=== PATIENT | female | born 1955 | race Caucasian/White ===

== ENCOUNTER 2020-03-27 07:37 | Day surgery (SDC) | payer BC ==
[~2020-03-27] VITALS: Ht 157.5 cm; Wt 59.4 kg
[2020-03-27] VITALS (11 sets, daily range): BP systolic 134–154; BP diastolic 76–110
[~2020-03-27 07:37] MED LIST: ASPI1TAB2 PO; PANT40TA4 PO; albuterol 2.5 MG/3 ML nebule NEB ONE; ceFAZolin 2gm in dextrose, iso 50 ML IV ONE; famotidine 20mg tablet PO ONE; ringers solution, lacted 1,000 ML IV SCH
[2020-03-27] MEDS ORDERED: LIDOcaine 1% 30ml preserv. free vial ONE (11:01)
[2020-03-27] MEDS ORDERED: BUPIVAcaine/PF 2.5 mg/ml (0.25%) 30ml vial ONE (11:02)
[2020-03-27] MEDS ORDERED: sevoflurane 250ml liquid IH ONE (11:13)
[2020-03-27] MEDS ORDERED: fentaNYL/PF 50MCG/1 ML 2ML syringe ONE (11:20)
[2020-03-27] MEDS ORDERED: midazolam 2 mg/2 ml injection ONE (11:20)
[2020-03-27] MEDS ORDERED: glycopyrrolate 0.2mg/ml inj ONE (11:49)
[2020-03-27] MEDS ORDERED: propofol inj 20 ML IV ONE (11:49)
[2020-03-27] MEDS ORDERED: rocuronium 10mg/ml inj IV ONE (11:49)
[2020-03-27] MEDS ORDERED: neostigmine methylsulfate 1 MG/ML 10ml vial ONE (11:49)
[2020-03-27] MEDS ORDERED: ondansetron/PF 4mg/2ml inj ONE (11:49)
[2020-03-27] MEDS ORDERED: LIDOcaine 2% (20mg/ml) 5ml vial ONE (11:49)
[2020-03-27] MEDS ORDERED: dexamethasone sod phosphate 4mg/ml inj. ONE (11:49)
[2020-03-27] MEDS ORDERED: ringers solution, lacted 1,000 ML IV SCH (11:58)
[2020-03-27] MEDS ORDERED: ondansetron/PF 4mg/2ml inj IV PRN (12:00)
[2020-03-27] MEDS ORDERED: morphine 4 MG/ML inj SYRINge IV PRN (12:00)
[2020-03-27] MEDS ORDERED: morphine 2 MG/ML inj. syringe IV PRN (12:00)
[2020-03-27] MEDS ORDERED: meperidine/PF 25mg/ml syringe IV PRN ×3 (12:00)
[2020-03-27] MEDS ORDERED: proCHLORperazine 10 MG/2 ml inj IV PRN (12:00)
[2020-03-27] MEDS ORDERED: ePHEDrine 50MG/ML INJ. ONE (12:05)
--- NOTE | 2020-03-27 12:18 | NUR ---
Received from OR via [facility], accompanied by Anesthesiologist DR REEVES and report given by Anesthesiologist. PT DROWSY, DENIES PAIN, ABDOMEN W/SMALL MICAELA TELLES COVERING INCISION CDI. Addendum: 03/27/20 at 1242 by Tomeka Wilkerson RN Amended: Links added.
[2020-03-27] MEDS ORDERED: oxyCODONE/APAP 5-325mg tablet PO PRN (12:45)
--- NOTE | 2020-03-27 14:18 | NUR ---
PT UP AND IS ABLE TO AMBULATE W/O DIFFICULTY, PT VOIDED, PAIN LEVEL IS GOOD, D/C INSTRUCTIONS GIVEN AND GONE OVER W/PT WHO VERBALIZED UNDERSTANDING, PT D/CD TO HOME VIA W/C TO PRIVATE VEHICLE W/O INCIDENT. Addendum: 03/27/20 at 1440 by Tomeka Wilkerson RN Amended: Links added.
== END 2020-03-27 14:18 | disposition home or self-care (01) ==
LOC: PAS 07:37
PROVIDERS: ATTEND Surgery
DX: K43.2 Incisional hernia without obstruction or gangrene (principal); K21.9 Gastro-esophageal reflux disease without esophagitis; E78.5 Hyperlipidemia, unspecified; F17.210 Nicotine dependence, cigarettes, uncomplicated; Z90.49 Acquired absence of other specified parts of digestive tract; Z88.8 Allergy status to other drugs, medicaments and biological substances; Z98.890 Other specified postprocedural states; Z90.710 Acquired absence of both cervix and uterus; Z98.42 Cataract extraction status, left eye; Z98.41 Cataract extraction status, right eye; Z11.59 Encounter for screening for other viral diseases; Z79.899 Other long term (current) drug therapy
CPT/HCPCS: 36415; 49560; 76937; 93005; J1100; J2001; J2250; J2405; J2704; J2710; J3010; J3490; J7120; U0003; A4215; A4618; A7000

== ENCOUNTER 2023-05-19 10:07 | Day surgery (SDC) | payer BC ==
[2023-05-17 15:34] LABS: BASOPHILS % (AUTO) 0.3 % (0-1); EOSINOPHILS # (AUTO) 0.1 X10'3 (0-0.9); EOSINOPHILS % (AUTO) 0.9 % (0-6); LYMPHOCYTES # (AUTO) 1.7 X10'3 (1.1-4.8); LYMPHOCYTES % (AUTO) 29.8 % (21-51); MEAN CORPUSCULAR HEMOGLOBIN 28.8 PG (27.0-31.0); MEAN CORPUSCULAR HGB CONC 32.7 g/dL (33.0-36.5); MEAN PLATELET VOLUME 7.8 FL (7.4-10.4); MONOCYTES # (AUTO) 0.4 X10'3 (0-0.9); NEUTROPHILS # (AUTO) 3.6 X10'3 (1.8-7.7); PRE OP HEMATOCRIT 43.4 % (35.0-45.0); PRE OP HEMOGLOBIN 14.2 g/dL (12.0-16.0); PRE OP PLATELET COUNT 240 X10'3 (140-440); PRE OP WHITE BLOOD COUNT 5.7 10'3 (4.8-10.8); RED BLOOD COUNT 4.93 X10'6 (4.20-5.60); RED CELL DISTRIBUTION WIDTH 13.6 % (11.5-14.5)
[2023-05-17 15:50] LABS: ALKALINE PHOSPHATASE 100 IU/L (46-116); BLOOD UREA NITROGEN 16 MG/DL (7-18); CALCIUM 9.3 MG/DL (8.5-10.1); CHLORIDE 104 MMOL/L (99-107); CREATININE 0.84 MG/DL (0.40-0.90); PRE OP ALT 36 U/L (30-65); PRE OP ANION GAP 8 (8-16); PRE OP AST 29 U/L (10-37); PRE OP BILIRUB, TOTAL 0.2 MG/DL (0.0-1.0); PRE OP GLUCOSE 99 MG/DL (70-104); PRE OP POTASSIUM 4.2 MMOL/L (3.4-5.1); PRE OP SODIUM 138 MMOL/L (135-145); TOTAL CARBON DIOXIDE 26.5 MMOL/L (24-32); TOTAL PROTEIN 7.9 G/DL (6.4-8.2); eGFR 67 ML/MIN
[~2023-05-19] VITALS: Ht 157.5 cm; Wt 60.3 kg
[~2023-05-19 10:07] MED LIST changes: -ASPI1TAB2 PO; +CETI10CA PO; +CYCL5TAB PO; +FAMO40TA7 PO; +MULT-1085 PO; -PANT40TA4 PO; +PRAV40TA3 PO; +TRAM50TA2 PO; -albuterol 2.5 MG/3 ML nebule NEB ONE; -ceFAZolin 2gm in dextrose, iso 50 ML IV ONE; +cefazolin 2gm/D5W 100mL 100 ML IV ONE; +clindamycin-Cleocin 900mg/D5W 50 ML IV ONE; +gentamicin inj 250 MG in normal saline 100ml IV soln 93.75 ML IV ONE
[2023-05-19 10:30] VITALS: BP 161/80; PULSE 90; RESP 16; TEMP 98.2; O2SAT 98
[2023-05-19 11:39] LABS: BILIRUBIN,URINE NEGATIVE (Neg); CLARITY,URINE SLIGHTLY CLOUDY (Clear); COLOR,URINE STRAW (Yellow); GLUCOSE, URINE NEGATIVE (Neg); KETONES,URINE NEGATIVE (Neg); LEUKOCYTE ESTERASE ,URINE NEGATIVE (Neg); NITRITES, URINE NEGATIVE (Neg); OCCULT BLOOD,URINE NEGATIVE (Neg); PH,URINE 6.5 (4.8-8.0); PROTEIN,URINE NEGATIVE (Neg); UROBILINOGEN,URINE 0.2 E.U/dL (0.2-1.0)
[2023-05-19 11:55] LABS: UA COLLECTION TYPE CLN CATCH MIDSTREAM
[2023-05-19 11:58] LABS: BACTERIA,URINE FEW /HPF (Neg); RBC,URINE 0-2 /HPF (0-2); SQUAMOUS EPITHELIAL CELL,UR FEW /LPF (FEW); WBC,URINE 0-4 /HPF (0-4)
[2023-05-19] MEDS ORDERED: BUPIVAcaine/PF 2.5 mg/ml (0.25%) 30ml vial ONE (11:59)
[2023-05-19] MEDS ORDERED: bacitracin 15gm ointment TP ONE ×2 (11:59→12:00)
[2023-05-19] MEDS ORDERED: sevoflurane 250ml liquid IH ONE (12:05)
[2023-05-19] MEDS ORDERED: fentaNYL/PF 50MCG/1 ML 2ML syringe ONE (12:09)
[2023-05-19] MEDS ORDERED: MIDAZolam 1 MG/ML 5ML VIAL ONE (12:10)
[2023-05-19] MEDS ORDERED: BUPIVAcaine/PF 7.5mg/ml (0.75%) 10ml vial ONE (12:38)
[2023-05-19] MEDS ORDERED: ROPIVAcaine 0.5% (5mg/ml) 30ml vial ONE (12:38)
[2023-05-19] MEDS ORDERED: LIDOcaine 1%/PF 5ML 10 MG/ML VIAL ONE (12:53)
[2023-05-19] MEDS ORDERED: propofol inj 20 ML IV ONE (12:53)
[2023-05-19] MEDS ORDERED: dexamethasone sod phosphate 4mg/ml inj. ONE (12:54)
[2023-05-19] MEDS ORDERED: ondansetron/PF 4mg/2ml inj ONE (12:56)
[2023-05-19] MEDS ORDERED: proCHLORperazine 10 MG/2 ml inj IV PRN (13:20)
[2023-05-19] MEDS ORDERED: morphine 2 MG/ML inj. syringe IV PRN (13:20)
[2023-05-19] MEDS ORDERED: morphine 4 MG/ML inj SYRINge IV PRN (13:20)
[2023-05-19] MEDS ORDERED: ondansetron/PF 4mg/2ml inj IV PRN (13:20)
[2023-05-19] MEDS ORDERED: meperidine/PF 25mg/ml syringe IV PRN ×3 (13:20)
[2023-05-19] MEDS ORDERED: ringers solution, lacted 1,000 ML IV SCH (13:20)
[2023-05-19] MEDS ORDERED: ketorolac trometh. 30mg/ml inj. ONE (14:18)
[2023-05-19 14:24] VITALS: BP 149/88; PULSE 90; RESP 16; O2SAT 100
--- NOTE | 2023-05-19 14:28 | NUR ---
Received from OR via [facility] IN STABLE CONDITION , accompanied by Anesthesiologist and LIMOUSINE DRIVER report given by LIMOUSINE DRIVER AND Anesthesiolgist. Addendum: 05/19/23 at 1443 by Caryn Mejia RN Amended: Links added.
[2023-05-19 14:40] VITALS: BP 130/86; PULSE 94; RESP 19; O2SAT 100
[2023-05-19 14:50] VITALS: BP 141/96; PULSE 91; RESP 18; O2SAT 100
--- NOTE | 2023-05-19 15:38 | NUR ---
PATIENT DISCHARGED FROM PACU IN STABLE CONDITION AFTER WRITTEN AND DISCHARGE INSTRUCTIONS GIVEN. PATIENT GAVE VERBAL UNDERSTANDING OF INSTRUCTIONS GIVEN. PATIENT LEFT FACILITY VIA WHEELCHAIR WITH RN. Addendum: 05/19/23 at 1549 by Caryn Mejia RN Amended: Links added.
== END 2023-05-19 15:38 | disposition home or self-care (01) ==
LOC: PAS 10:07
PROVIDERS: ATTEND Podiatrist Foot & Ankle Surgery
DX: M20.12 Hallux valgus (acquired), left foot (principal); M21.612 Bunion of left foot; M19.072 Primary osteoarthritis, left ankle and foot; M19.071 Primary osteoarthritis, right ankle and foot; G89.18 Other acute postprocedural pain; K21.9 Gastro-esophageal reflux disease without esophagitis; F17.210 Nicotine dependence, cigarettes, uncomplicated; Z79.899 Other long term (current) drug therapy; Z79.82 Long term (current) use of aspirin; Z90.49 Acquired absence of other specified parts of digestive tract; Z90.710 Acquired absence of both cervix and uterus; Z98.890 Other specified postprocedural states; Z72.89 Other problems related to lifestyle; Z98.41 Cataract extraction status, right eye; Z98.42 Cataract extraction status, left eye
CPT/HCPCS: 20900; 28297; 36415; 64445; 64447; 73620; 80053; 81001; 82948; 85025; A6223; C1713; C1734; J0690; J1100; J1885; J2250; J2405; J2704; J2795; J3010; J3490; J7030; J7120; L4360; Z7506; Z7508; Z7512; 76000; A4215; A4618; A6449; A7000; J1580